=== PATIENT | female | born 1990 | race Caucasian/White ===

== ENCOUNTER 2017-06-04 08:00 | Outpatient (CLI) | payer MEDICAID ==
[2017-06-04 14:15] LABS: ALBUMIN 4.5 g/dL (3.2-5.5); ALBUMIN/GLOBULIN RATIO 1.4 (1.0-2.2); ALKALINE PHOSPHATASE 58 IU/L (42-121); ALT ALANINE AMINOTRANSFERASE 86 IU/L (10-60); AST ASPARTATE AMINOTRANSFERASE 47 IU/L (10-42); BILIRUBIN,TOTAL 0.8 mg/dL (0.2-1.0); BUN - BLOOD UREA NITROGEN 12 mg/dL (6-20); CALCIUM 9.2 mg/dL (8.5-10.3); CARBON DIOXIDE - CO2 23 mmol/L (21-32); CHLORIDE 105 mmol/L (101-111); CHOL/HDL RATIO 4.7 (<4.4); CHOLESTEROL 185 mg/dL; CREATININE 0.5 mg/dL (0.4-1.0); GFR - MDRD 150 (>89); GLUCOSE 109 mg/dL (70-100); HDL CHOLESTEROL 39 mg/dL; LDL CHOLESTEROL,CALCULATED 113 mg/dL; LDL/HDL RATIO 2.9 (<4.4); SODIUM 136 mmol/L (135-145); TOTAL PROTEIN 7.8 g/dL (6.7-8.2); VLDL CHOLESTEROL 33 mg/dL
== END 2017-06-04 08:01 | disposition home or self-care (01) ==
LOC: LAB.N 08:00
PROVIDERS: ATTEND Family Medicine
DX: E66.9 Obesity, unspecified (principal); I10 Essential (primary) hypertension
CPT/HCPCS: 36415; 80053; 80061

== ENCOUNTER 2018-05-11 12:17 | Outpatient (CLI) | payer MEDICAID ==
[2018-05-11 13:45] LABS: ALBUMIN 4.1 g/dL (3.2-5.5); ALBUMIN/GLOBULIN RATIO 1.2 (1.0-2.2); ALKALINE PHOSPHATASE 54 IU/L (42-121); ALT ALANINE AMINOTRANSFERASE 53 IU/L (10-60); AST ASPARTATE AMINOTRANSFERASE 31 IU/L (10-42); BILIRUBIN,TOTAL 0.6 mg/dL (0.2-1.0); BUN - BLOOD UREA NITROGEN 10 mg/dL (6-20); CARBON DIOXIDE - CO2 24 mmol/L (21-32); CHLORIDE 103 mmol/L (101-111); CHOL/HDL RATIO 4.4 (<4.4); CHOLESTEROL 171 mg/dL; CREATININE 0.5 mg/dL (0.4-1.0); GFR - MDRD 149 (>89); GLUCOSE 102 mg/dL (70-100); HDL CHOLESTEROL 39 mg/dL; LDL CHOLESTEROL,CALCULATED 91 mg/dL; LDL/HDL RATIO 2.3 (<4.4); SODIUM 134 mmol/L (135-145); TOTAL PROTEIN 7.5 g/dL (6.7-8.2); VLDL CHOLESTEROL 41 mg/dL
[2018-05-11 14:00] LABS: HB2 TOTAL 14.1 g/dL; HEMOGLOBIN A1C 0.51 g/dL; HEMOGLOBIN A1C % 5.5 % (4.6-6.2)
== END 2018-05-11 23:59 | disposition home or self-care (01) ==
LOC: LAB.N 12:17
PROVIDERS: ATTEND Family Medicine
DX: R74.0 Nonspecific elevation of levels of transaminase and lactic acid dehydrogenase [LDH] (principal); R73.01 Impaired fasting glucose; I10 Essential (primary) hypertension
CPT/HCPCS: 36415; 80053; 80061; 83036; 83721

== ENCOUNTER 2020-04-21 16:15 | Outpatient (CLI) | payer MEDICAID | END 2020-04-21 16:16 | disposition home or self-care (01) | LOC: COV 16:15 | PROVIDERS: ATTEND Family Medicine | DX: Z20.828 Contact with and (suspected) exposure to other viral communicable diseases (principal) ==

== ENCOUNTER 2020-08-23 08:00 | Outpatient (CLI) | payer MEDICAID ==
--- NOTE | 2020-08-23 17:00 | XRAY Report ---
PROCEDURE: Chest 2 View X-Ray INDICATIONS: COUGH TECHNIQUE: 2 view(s) of the chest. COMPARISON: None. FINDINGS: Surgical changes and devices: None. Lungs and pleura: No pleural effusions or pneumothorax. Lungs are clear. Mediastinum: Mediastinal contours are normal. Heart size is normal. Bones and chest wall: No suspicious bony abnormalities. Soft tissues appear unremarkable. IMPRESSION: Normal for age, source of current symptoms is not seen. Reviewed by: Michael Santana MD on 08/23/2020 4:59 PM PDT Approved by: Michael Santana MD on 08/23/2020 4:59 PM PDT Station ID: [id number]
== END 2020-08-23 23:59 | disposition home or self-care (01) ==
LOC: DI.N 08:00
PROVIDERS: ATTEND Family Medicine
DX: R05 Cough (principal); Z20.822 Contact with and (suspected) exposure to COVID-19

== ENCOUNTER 2021-08-23 09:35 | Outpatient (CLI) | payer MEDICAID | END 2021-08-23 09:36 | disposition home or self-care (01) | LOC: LAB.N 09:35 | PROVIDERS: ATTEND Physician Assistant Medical | DX: Z00.00 Encounter for general adult medical examination without abnormal findings (principal); R73.01 Impaired fasting glucose ==

== ENCOUNTER 2021-08-23 09:38 | Outpatient (CLI) | payer MEDICAID ==
[2021-08-23 12:29] LABS: BASOPHILS # (AUTO) 0.1 10^3/uL (0.0-0.1); BASOPHILS % (AUTO) 0.6 %; EOSINOPHILS # (AUTO) 0.1 10^3/uL (0.0-0.7); EOSINOPHILS % (AUTO) 0.8 %; HCT - HEMATOCRIT 42.1 % (37.0-47.0); MEAN CORPUSCULAR HEMOGLOBIN 30.8 pg (27.0-31.0); MEAN CORPUSCULAR HGB CONC 33.3 g/dL (32.0-36.0); MEAN CORPUSCULAR VOLUME 92.7 fL (81.0-99.0); MEAN PLATELET VOLUME 9.5 fL (7.9-10.8); MONOCYTES # (AUTO) 0.6 10^3/uL (0.0-1.0); MONOCYTES % (AUTO) 6.2 %; NEUTROPHILS # (AUTO) 6.1 10^3/uL (1.5-6.6); NEUTROPHILS % (AUTO) 69.2 %; PLT - PLATELET COUNT 332 10^3/uL (130-450); RED BLOOD COUNT 4.54 10^6/uL (4.20-5.40); RED CELL DISTRIBUTION WIDTH 11.9 % (12.0-15.0); WHITE BLOOD COUNT 8.9 x10^3/uL (4.8-10.8)
[2021-08-23 12:58] LABS: ALBUMIN 4.5 g/dL (3.2-5.5); ALBUMIN/GLOBULIN RATIO 1.2 (1.0-2.2); ALKALINE PHOSPHATASE 53 IU/L (42-121); ALT ALANINE AMINOTRANSFERASE 58 IU/L (10-60); AST ASPARTATE AMINOTRANSFERASE 29 IU/L (10-42); BILIRUBIN,TOTAL 0.5 mg/dL (0.2-1.0); BUN - BLOOD UREA NITROGEN 18 mg/dL (6-20); CALCIUM 9.5 mg/dL (8.5-10.3); CARBON DIOXIDE - CO2 25 mmol/L (21-32); CHLORIDE 101 mmol/L (101-111); CHOL/HDL RATIO 4.6 (<4.4); CHOLESTEROL 193 mg/dL; CREATININE 0.6 mg/dL (0.4-1.0); GFR - MDRD 118 (>89); GLUCOSE 106 mg/dL (70-100); HDL CHOLESTEROL 42 mg/dL; LDL CHOLESTEROL,CALCULATED 128 mg/dL; POTASSIUM 4.9 mmol/L (3.5-5.0); SODIUM 134 mmol/L (135-145); TOTAL PROTEIN 8.2 g/dL (6.7-8.2); TRIGLYCERIDES 115 mg/dL; VLDL CHOLESTEROL 23 mg/dL
[2021-08-23 13:02] LABS: THYROID STIMULATING HORMONE 0.85 uIU/mL (0.34-5.60)
== END 2021-08-23 09:39 | disposition home or self-care (01) ==
LOC: LAB.N 09:38
PROVIDERS: ATTEND Physician Assistant Medical
DX: Z00.00 Encounter for general adult medical examination without abnormal findings (principal); R73.01 Impaired fasting glucose
CPT/HCPCS: 36415; 80053; 80061; 83721; 84443; 85025

== ENCOUNTER 2022-03-19 08:00 | Outpatient (CLI) | payer MEDICAID ==
[2022-03-19 21:48] LABS: CHLAMYDIA TRACHOMATIS DNA NEGATIVE (NEGATIVE); NEISSERIA GONORRHOEAE DNA NEGATIVE (NEGATIVE)
[2022-03-19 21:59] LABS: TRICHOMONAS VAGINALIS DNA POSITIVE (NEGATIVE)
== END 2022-03-19 23:59 | disposition home or self-care (01) ==
LOC: LAB.N 08:00
PROVIDERS: ATTEND Physician Assistant Medical
DX: N76.0 Acute vaginitis (principal)
CPT/HCPCS: 87491; 87591; 87661

== ENCOUNTER 2022-07-23 08:27 | Emergency (ER) | payer MEDICAID ==
[2022-07-23] MEDS ORDERED: DEXAMETHASONE 10 MG/ML VIAL PO STA (09:14)
[2022-07-23] MEDS ORDERED: CHERRY SYRUP 10 ML UDC PO ONE (09:14)
--- NOTE | 2022-07-23 09:30 | ED Physician Documentation ---
PD HPI URI - Stated complaint Stated Complaint: COUGH - Chief complaint Chief Complaint: Resp - History obtained from History obtained from: Patient - History of Present Illness Timing - onset: How many weeks ago (3) Timing duration: Weeks (3) Timing details: Gradual onset, Still present, Waxing and waning Associated symptoms: Nasal congestion, Rhinorrhea, Dry cough. No: Fever Contributing factors: Sick contact (both son and daughter are sick with similar .) Improves by: Rest, Medication Similar symptoms before: Has not had sx before Recently seen: Not recently seen - Additional information Additional information: Previously well 32-year-old Flaquita Young has developed a cough and congestion with her 2 children. Her children have been sick for a month and 3 weeks. She has been sick for the past 3 weeks with cough and congestion. She brings up scant phlegm. Review of Systems Constitutional: denies: Fever Eyes: denies: Decreased vision Ears: denies: Ear pain Nose: reports: Rhinorrhea / runny nose, Congestion Throat: denies: Sore throat Cardiac: denies: Chest pain / pressure, Palpitations Respiratory: reports: Cough. denies: Dyspnea GI: denies: Abdominal Pain, Nausea, Vomiting, Diarrhea : denies: Dysuria, Frequency Skin: denies: Rash Musculoskeletal: denies: Neck pain, Back pain, Extremity pain Neurologic: denies: Generalized weakness, Focal weakness, Numbness PD PAST MEDICAL HISTORY - Past Medical History Past Medical History: Yes Cardiovascular: Hypertension - Past Surgical History Past Surgical History: No - Present Medications Home Medications: Ambulatory Orders Medication Instructions Recorded Confirmed Azithromycin [Zithromax] 250 mg PO DAILY #6 tablet 07/23/22 Lisinopril [Zestril] 20 mg PO DAILY 07/23/22 07/23/22 - Allergies Allergies/Adverse Reactions: Allergies Allergy/AdvReac Type Severity Reaction Status Date / Time No Known Drug Allergies Allergy Verified 07/23/22 08:42 - Social History Does the pt smoke?: No Smoking Status: Never smoker Does the pt drink ETOH?: No Does the pt have substance abuse?: No - Immunizations Immunizations are current?: Yes PD ED PE NORMAL - Vitals Vital signs reviewed: Yes (Hypertensive) - General General: Alert and oriented X 3, No acute distress, Well developed/nourished - HEENT HEENT: Atraumatic, PERRL, EOMI, Ears normal, Moist mucous membranes, Pharynx benign, Dentition benign, Other - Neck Neck: Supple, no meningeal sign, No bony TTP - Cardiac Cardiac: RRR, No murmur - Respiratory Respiratory: No respiratory distress, Other (Faint inspiratory wheeze fair air movement) - Abdomen Abdomen: Soft, Non tender - Back Back: No CVA TTP, No spinal TTP - Derm Derm: Normal color, Warm and dry, No rash - Extremities Extremities: No deformity, No edema - Neuro Neuro: Alert and oriented X 3, blue crabber 2-12 intact, No motor deficit, No sensory deficit, Normal speech Eye Opening: Spontaneous Motor: Obeys Commands Verbal: Oriented GCS Score: 15 - Psych Psych: Normal mood, Normal affect Results - Vitals Vitals: Vital Signs - 24 hr 07/23/22 07/23/22 08:39 10:32 Temperature 98.5 C H 36.7 C Heart Rate 99 91 Respiratory 16 15 Rate Blood Pressure 198/127 H 180/100 H O2 Saturation 96 98 Oxygen O2 Source Room air PD Medical Decision Making - ED course Complexity details: considered differential, d/w patient ED course: 32-year-old female with a 3-week history of cough and congestion is still producing some phlegm 3 weeks into a bronchitis and trial of antibiotic is indicated. Place patient on a course of azithromycin after administering a dose of dexamethasone. Departure - Departure Disposition: 01 Home, Self Care Clinical Impression: Asthmatic bronchitis Qualifiers: Asthma severity: mild Asthma persistence: intermittent Asthma complication type: with acute exacerbation Qualified Code(s): J45.21 - Mild intermittent asthma with (acute) exacerbation Condition: Stable Instructions: ED Bronchitis Asthmatic Follow-Up: Marilee Doss PA-C [Primary Care Provider] - Prescriptions: Azithromycin [Zithromax] 250 mg PO DAILY #6 tablet Comments: Stacy today looks like you have some mild wheezing and bronchitis. This has been present for more than a month and a short course of antibiotic is indicated. I do not expect you will need to use an inhaler. The dose of dexamethasone given today should help quite a bit by this afternoon with the ease of breathing. A prescription for azithromycin has been E scribed to the [facility] in [place]. Discharge Date/Time: 07/23/22 10:34
[2022-07-23 10:34] VITALS: BP 180/100
== END 2022-07-23 10:34 | disposition home or self-care (01) ==
LOC: ED 08:27
DX: J45.21 Mild intermittent asthma with (acute) exacerbation (principal); I10 Essential (primary) hypertension
CPT/HCPCS: 99282; 99283; A9270

== ENCOUNTER 2023-01-24 08:00 | Outpatient (CLI) | payer MEDICAID ==
[2023-01-24 23:45] LABS: CHLAMYDIA TRACHOMATIS DNA NEGATIVE (NEGATIVE); NEISSERIA GONORRHOEAE DNA NEGATIVE (NEGATIVE)
[2023-01-25 16:42] LABS: BACTERIAL VAGINOSIS DNA NEGATIVE (NEGATIVE); CANDIDA GROUP DNA NEGATIVE (NEGATIVE); CANDIDA KRUSEI DNA NEGATIVE (NEGATIVE); TRICHOMONAS VAGINALIS DNA POSITIVE (NEGATIVE)
[2023-01-25 16:43] LABS: CANDIDA GLABRATA DNA NEGATIVE (NEGATIVE)
== END 2023-01-24 23:59 | disposition home or self-care (01) ==
LOC: LAB.N 08:00
PROVIDERS: ATTEND Registered Nurse
DX: N76.0 Acute vaginitis (principal)
CPT/HCPCS: 81514; 87491; 87591; 87661

== ENCOUNTER 2023-04-01 10:56 | Outpatient (CLI) | payer MEDICAID ==
--- NOTE | 2023-04-01 10:46 | CARDIAC PROCEDURE NOTE ---
Stress Test Report Service Date: 04/01/23 Service Time: 11:00 Ordering Provider: Marilee Doss PA-C Indication for Test: Assess atypical chest discomfort. Significant Medical History: Stacy is referred for a treadmill stress echocardiogram today, to evaluate intermittent brief episodes of left-sided chest pain, present over the past year and possibly increasing in frequency recently. The episodes occur either with exercise or at rest, without a predictable pattern. Episode duration is typically about 30 seconds, longest 1 minute, and rubbing on her chest over the area usually does decrease the discomfort partially. She reports no associated radiation of the pain, shortness of breath, diaphoresis, nausea or vomiting. 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 She does not feel that she is experiencing a decrease in her stamina. Cardiac Risk Factors: Positive for hypertension (treated with medication for the past 9-10 years) and hyperlipidemia (TC 230, LDL-C 147, HDL-C 43, TG 198, not treated); no history of diabetes or known family history of atherosclerotic disease. She was a smoker but quit over 7 years ago so attributable risk here is likely now very low. Type of Stress Test: ETT with Echocardiography Procedure: -Exercise Treadmill Test- After signing informed consent, the patient underwent echo imaging at rest and then performed treadmill exercise using a Rajinder protocol. The patient exercised for 8 minutes 56 seconds and achieved a peak heart rate of 176 (89 percent predicted maximum heart rate for age), and an estimated workload of 10.2 METS. The test was terminated due to fatigue/shortness of breath. Resting heart rate: 89 Peak heart rate: 176 Normal response to exercise. Resting BP: 138/91 Peak BP: 183/86 Hypertensive at rest with biphasic BP response to exercise; increase to 160/72 in stage 1, decrease to 142/79 in stage 2 (?measurement error) then increase to 183/86 at peak exercise. Rhythm during exercise: Sinus rhythm throughout with no ectopy observed. Symptoms: After conclusion of exercise she reported having had very mild chest tightness in stages 2 and 3, with rapid resolution in early Recovery. EKG at rest showed normal sinus rhythm, normal in all aspects. EKG at peak stress showed no ischemia by EKG criteria; computer analysis suggests inferior ST depression, but this is likely artifactual due to highly varying baseline. In Recovery heart rate rapidly/normally decreased toward baseline level, with slower decline in BP (148/77 at 5:00). Echo imaging, performed at rest and with stress, will be reported separately. Charli Olsen MD, was present throughout this treadmill stress study and supervised it in its entirety. Summary: 1) Exercise tolerance mildly decreased for age and sex as evidenced by JOSE J of 9%. 2) Normal resting EKG. 3) Adequate level of exercise was achieved on this treadmill stress test. 4) Mildly hypertensive at rest (did not take QAM lisinopril prior to coming in) with possibly biphasic, but likely normal (see narrative above) BP response to exercise. 5) No ischemic changes by EKG criteria were seen at peak stress. 6) Echo image interpretation reveals normal left ventricular size, wall thicknes s and systolic function, with appropriate hyperdynamic augmentation of all segments with exercise, indicating no evidence of prior infarct or inducible ischemia. No significant valvular abnormality or elevation of estimated pulmonary artery systolic pressure seen on screening study. See separate report for more details. Conclusions and Recommendations: 1) Reassuring treadmill stress echocardiogram study, with very mild chest tightness late in exercise but no EKG or echocardiographic evidence of associated ischemia. 2) Reassurance provided, in hopes that her awareness of discomfort will gradually subside with time.
== END 2023-04-01 10:57 | disposition home or self-care (01) ==
LOC: DI 10:56
PROVIDERS: ATTEND Physician Assistant Medical
DX: R07.89 Other chest pain (principal); I10 Essential (primary) hypertension; E78.5 Hyperlipidemia, unspecified; Z87.891 Personal history of nicotine dependence
CPT/HCPCS: 93350

== ENCOUNTER 2023-08-05 15:40 | Outpatient (CLI) | payer MEDICAID | END 2023-08-05 23:59 | disposition critical access hospital (66) | LOC: EMS 15:40 | DX: R06.9 Unspecified abnormalities of breathing (principal); R41.0 Disorientation, unspecified; R47.81 Slurred speech; R23.1 Pallor; F10.90 Alcohol use, unspecified, uncomplicated | CPT/HCPCS: A0425; A0429; A0999 ==

== ENCOUNTER 2023-08-05 16:03 | Emergency (ER) | payer MEDICAID ==
--- NOTE | 2023-08-05 16:23 | ED Physician Documentation ---
PD HPI ALTERED MENTAL STATUS - Stated complaint Stated Complaint: OD/ETOH - Chief complaint Chief Complaint: Neuro - History obtained from History obtained from: Patient, EMS - History of Present Illness Timing - onset: Today Timing - details: Abrupt onset, Still present, Still present in ED Quality / character: Unresponsive (friends concerned about her not apparently breathing, so called 911. EMS found pt hypoventilating and did okay with oxygen by NC. No apparent injuries.) Contributing factors: No: Anticoagulated, Diabetic Basline status: Alert and oriented X 3, Ambulatory Review of Systems Unable to obtain: AMS PD PAST MEDICAL HISTORY - Past Medical History Cardiovascular: Hypertension - Past Surgical History Past Surgical History: No - Present Medications Home Medications: Ambulatory Orders Medication Instructions Recorded Confirmed Lisinopril [Zestril] 20 mg PO DAILY 07/23/22 08/05/23 - Allergies Allergies/Adverse Reactions: Allergies Allergy/AdvReac Type Severity Reaction Status Date / Time No Known Drug Allergies Allergy Verified 08/05/23 16:13 - Social History Does the pt smoke?: No Smoking Status: Never smoker Does the pt drink ETOH?: No Does the pt have substance abuse?: No - Immunizations Immunizations are current?: Yes PD ED PE NORMAL - Vitals Vital signs reviewed: Yes - General General: Well developed/nourished (elevated BMI 39. sleepy but rousable to muttering answers with verbal and light touch stimulation. ) - HEENT HEENT: Atraumatic, Moist mucous membranes - Neck Neck: Supple, no meningeal sign, No adenopathy - Cardiac Cardiac: No murmur. No: RRR (mild tachycardia. Normal blood pressure. ) - Respiratory Respiratory: Clear bilaterally - Abdomen Abdomen: Normal bowel sounds, Soft, Non tender, Non distended - Derm Derm: Normal color, Warm and dry - Extremities Extremities: No tenderness to palpate, Normal ROM s pain - Neuro Eye Opening: To Voice Motor: Obeys Commands Verbal: Confused GCS Score: 13 Results - Vitals Vitals: Oxygen O2 Source Room air - Labs Labs: Laboratory Tests 08/05/23 08/05/23 08/05/23 16:37 16:37 18:10 WBC 10.6 RBC 4.41 Hgb 13.6 Hct 40.9 MCV 92.7 MCH 30.8 MCHC 33.3 RDW 12.7 Plt Count 375 MPV 8.5 Neut # (Auto) 6.8 H Lymph # (Auto) 3.2 [place] # (Auto) 0.4 Eos # (Auto) 0.1 Baso # (Auto) 0.0 Absolute Nucleated RBC 0.00 Nucleated RBC % 0.0 Sodium 138 Potassium 3.3 L Chloride 104 Carbon Dioxide 18 L Anion Gap 16.0 H BUN 12 Creatinine 0.7 Estimated GFR (MDRD) 98 Glucose 168 H Calcium 8.7 Total Bilirubin 0.4 AST 129 H ALT 156 H Alkaline Phosphatase 52 Total Protein 7.7 Albumin 4.5 Globulin 3.2 Albumin/Globulin Ratio 1.4 Lipase 14 Urine HCG, Qual NEGATIVE Salicylates < 1.5 Urine Opiates Screen NEGATIVE Ur Buprenorphine Scrn NEGATIVE Ur Oxycodone Screen NEGATIVE Urine Methadone Screen NEGATIVE Acetaminophen 0.1 Ur Barbiturates Screen NEGATIVE Ur Tricyclics Screen NEGATIVE Ur Phencyclidine Scrn NEGATIVE Ur Amphetamine Screen NEGATIVE U Methamphetamines Scrn NEGATIVE U Benzodiazepines Scrn NEGATIVE Urine Cocaine Screen POSITIVE H U Cannabinoids Screen NEGATIVE Ur Drug Screen Comment CUTOFF CONC BELOW: Ethyl Alcohol 195.5 PD Medical Decision Making - ED course Complexity details: reviewed results, re-evaluated patient (pt was slowly having more alertness and conveersational ability. She denies self harm ideation. She states does not drink alcohol regulalry. COnfirms use of alcohol and cocaine. ), considered differential (seems intoxicated with altered LOC. No signs nor reports of injury. She slowly improved LOC and ability to interact with time. Not quite ambulatory on own safely at time of shift change. ), d/w patient Departure - Departure Disposition: 01 Home, Self Care Clinical Impression: Alcohol intoxication AMS (altered mental status) Qualifiers: Altered mental status type: unspecified Qualified Code(s): R41.82 - Altered mental status, unspecified Condition: Stable Record reviewed to determine appropriate education?: Yes Instructions: ED Alcohol Intoxication Comments: You were unconscious/poorly responsive. At this point presume it was from the alcohol intake. Your other basic blood tests are normal with electrolytes blood sugar and blood count. Your urine tox screen test was as we discussed. Moderation and intake. Stay well-hydrated. Home and rest tonight. Forms: PCP List Discharge Date/Time: 08/05/23 21:00
[2023-08-05] MEDS: ONDANSETRON 4 MG/2 ML VIAL IVP STA (16:45)
[2023-08-05] MEDS: SODIUM CHLORIDE 0.9% 1,000 ML IV STA (16:46)
[2023-08-05 16:49] LABS: BASOPHILS % (AUTO) 0.4 %; EOSINOPHILS # (AUTO) 0.1 10^3/uL (0.0-0.7); EOSINOPHILS % (AUTO) 0.6 %; HCT - HEMATOCRIT 40.9 % (37.0-47.0); HGB - HEMOGLOBIN 13.6 g/dL (12.0-16.0); LYMPHOCYTES # (AUTO) 3.2 10^3/uL (1.5-3.5); LYMPHOCYTES % (AUTO) 30.1 %; MEAN CORPUSCULAR HEMOGLOBIN 30.8 pg (27.0-31.0); MEAN CORPUSCULAR HGB CONC 33.3 g/dL (32.0-36.0); MEAN CORPUSCULAR VOLUME 92.7 fL (81.0-99.0); MEAN PLATELET VOLUME 8.5 fL (7.9-10.8); MONOCYTES # (AUTO) 0.4 10^3/uL (0.0-1.0); MONOCYTES % (AUTO) 4.2 %; NEUTROPHILS # (AUTO) 6.8 10^3/uL (1.5-6.6); NEUTROPHILS % (AUTO) 64.2 %; PLT - PLATELET COUNT 375 10^3/uL (130-450); RED BLOOD COUNT 4.41 10^6/uL (4.20-5.40); RED CELL DISTRIBUTION WIDTH 12.7 % (12.0-15.0); WHITE BLOOD COUNT 10.6 x10^3/uL (4.8-10.8)
[2023-08-05 16:55] LABS: ACETAMINOPHEN 0.1 ug/mL; ETOH - ETHANOL 195.5 mg/dL; LIPASE 14 U/L (11-82)
[2023-08-05 17:02] LABS: ALBUMIN 4.5 g/dL (3.2-5.5); ALBUMIN/GLOBULIN RATIO 1.4 (1.0-2.2); ALKALINE PHOSPHATASE 52 IU/L (42-121); ALT ALANINE AMINOTRANSFERASE 156 IU/L (10-60); AST ASPARTATE AMINOTRANSFERASE 129 IU/L (10-42); BILIRUBIN,TOTAL 0.4 mg/dL (0.2-1.0); BUN - BLOOD UREA NITROGEN 12 mg/dL (6-20); CALCIUM 8.7 mg/dL (8.5-10.3); CARBON DIOXIDE - CO2 18 mmol/L (21-32); CHLORIDE 104 mmol/L (101-111); CREATININE 0.7 mg/dL (0.6-1.3); GFR - MDRD 98 (>89); GLUCOSE 168 mg/dL (74-104); POTASSIUM 3.3 mmol/L (3.5-4.5); SODIUM 138 mmol/L (135-145); TOTAL PROTEIN 7.7 g/dL (6.4-8.9)
[2023-08-05 17:26] LABS: SALICYLATE < 1.5 mg/dL
[2023-08-05 18:24] VITALS: O2SAT 95
[2023-08-05 18:28] LABS: HCG UR QUAL NEGATIVE
[2023-08-05 18:32] LABS: AMPHETAMINE SCREEN,URINE NEGATIVE (NEGATIVE); BARBITURATE SCREEN,UR NEGATIVE (NEGATIVE); BENZODIAZEPINES SCREEN, URINE NEGATIVE (NEGATIVE); COCAINE SCREEN URINE POSITIVE (NEGATIVE); METHADONE SCREEN, URINE NEGATIVE (NEGATIVE); METHAMPHETAMINES SCREEN, URINE NEGATIVE (NEGATIVE); OPIATE SCREEN, URINE NEGATIVE (NEGATIVE); OXYCODONE SCREEN, URINE NEGATIVE (NEGATIVE); THC CANNABINOID SCREEN, URINE NEGATIVE (NEGATIVE); TRICYCLIC ANTIDEPRESSANT,URINE NEGATIVE (NEGATIVE)
[2023-08-05 18:33] LABS: BUPRENORPHINE SCREEN, URINE NEGATIVE (NEGATIVE)
--- NOTE | 2023-08-05 20:04 | ED Physician Documentation ---
ED Addendum - Addendum Addendum: 08/05/23 20:03 The patient was reevaluated by myself at 1999 after being signed out at change of shift by Dr. Kim after presenting to the emergency department with alcohol intoxication as well as possibly effects of cocaine. The patient had been observed in the emergency department for several hours and on reevaluation was alert, coherent, and ready to go home. Her vital signs were normal and the patient overall was well-appearing. She had a sober ride home. We have discuss ed symptomatic management at home and the dangers of using alcohol and cocaine at the same time. We discussed the usual indications for return. Final impression: 1. Alcohol intoxication 2. Altered mental status Disposition: Home in stable and improved condition.
[2023-08-05 21:02] VITALS: BP 127/88
== END 2023-08-05 21:00 | disposition home or self-care (01) ==
LOC: EDUNIT# → ED 16:03
DX: F10.129 Alcohol abuse with intoxication, unspecified (principal); Y90.6 Blood alcohol level of 120-199 mg/100 ml; R41.82 Altered mental status, unspecified; I10 Essential (primary) hypertension; Z79.899 Other long term (current) drug therapy
CPT/HCPCS: 36415; 80053; 80143; 80179; 80306; 81025; 82077; 83690; 85025; 99283; 99284

== ENCOUNTER 2023-08-18 09:00 | Outpatient (CLI) | payer MEDICAID ==
[2023-08-18 12:02] LABS: BASOPHILS % (AUTO) 0.5 %; EOSINOPHILS # (AUTO) 0.1 10^3/uL (0.0-0.7); EOSINOPHILS % (AUTO) 0.9 %; HCT - HEMATOCRIT 40.2 % (37.0-47.0); HGB - HEMOGLOBIN 13.5 g/dL (12.0-16.0); LYMPHOCYTES # (AUTO) 1.9 10^3/uL (1.5-3.5); LYMPHOCYTES % (AUTO) 23.6 %; MEAN CORPUSCULAR HEMOGLOBIN 30.8 pg (27.0-31.0); MEAN CORPUSCULAR HGB CONC 33.6 g/dL (32.0-36.0); MEAN CORPUSCULAR VOLUME 91.6 fL (81.0-99.0); MEAN PLATELET VOLUME 9.5 fL (7.9-10.8); MONOCYTES # (AUTO) 0.5 10^3/uL (0.0-1.0); MONOCYTES % (AUTO) 6.3 %; NEUTROPHILS # (AUTO) 5.6 10^3/uL (1.5-6.6); NEUTROPHILS % (AUTO) 68.6 %; PLT - PLATELET COUNT 289 10^3/uL (130-450); RED BLOOD COUNT 4.39 10^6/uL (4.20-5.40); RED CELL DISTRIBUTION WIDTH 12.2 % (12.0-15.0); WHITE BLOOD COUNT 8.1 x10^3/uL (4.8-10.8)
[2023-08-18 12:26] LABS: ALBUMIN 4.3 g/dL (3.2-5.5); ALBUMIN/GLOBULIN RATIO 1.5 (1.0-2.2); ALKALINE PHOSPHATASE 54 IU/L (42-121); ALT ALANINE AMINOTRANSFERASE 62 IU/L (10-60); AST ASPARTATE AMINOTRANSFERASE 29 IU/L (10-42); BILIRUBIN,TOTAL 0.3 mg/dL (0.2-1.0); BUN - BLOOD UREA NITROGEN 11 mg/dL (6-20); CALCIUM 9.3 mg/dL (8.5-10.3); CARBON DIOXIDE - CO2 25 mmol/L (21-32); CHLORIDE 108 mmol/L (101-111); CHOL/HDL RATIO 4.6 (<4.4); CHOLESTEROL 184 mg/dL; CREATININE 0.5 mg/dL (0.6-1.3); GFR - MDRD 144 (>89); GLUCOSE 102 mg/dL (74-104); HDL CHOLESTEROL 40 mg/dL; LDL CHOLESTEROL,CALCULATED 92 mg/dL; LDL/HDL RATIO 2.3 (<4.4); POTASSIUM 4.2 mmol/L (3.5-4.5); SODIUM 136 mmol/L (135-145); TOTAL PROTEIN 7.1 g/dL (6.4-8.9); TRIGLYCERIDES 261 mg/dL (48-352); VLDL CHOLESTEROL 52 mg/dL
[2023-08-18 12:32] LABS: ESTIMATED AVERAGE GLUCOSE 117 mg/dL (70-100); HEMOGLOBIN A1c% 5.7 % (4.27-6.07)
[2023-08-18 12:36] LABS: THYROID STIMULATING HORMONE 0.68 uIU/mL (0.34-5.60)
== END 2023-08-18 09:01 | disposition home or self-care (01) ==
LOC: LAB.N 09:00
PROVIDERS: ATTEND Nurse Practitioner Family
DX: I10 Essential (primary) hypertension (principal); R74.8 Abnormal levels of other serum enzymes; E66.9 Obesity, unspecified
CPT/HCPCS: 36415; 80053; 80061; 83036; 83721; 84443; 85025

== ENCOUNTER 2023-09-21 09:05 | Emergency (ER) | payer MEDICAID ==
[2023-09-21 09:22] VITALS: BP 162/106; O2SAT 97
--- NOTE | 2023-09-21 09:38 | ED Physician Documentation ---
History of Present Illness - Stated complaint Stated Complaint: RT HAND TINGLING - Chief complaint Chief Complaint: Ext Problem - History obtained from History obtained from: Patient - Additonal information Additional information: The patient comes to the emergency department chief complaint of pain and numbness in her bilateral hands, worse on the right, that has been keeping her up at night for the last 2 weeks. 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 She states that the numb, searing pain starts at the base of her palm, just distal to her wrist and extends through the palm distally 10 with a numb, burning sensation in her middle and ring fingers. She states that she has not noticed any swelling. 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 She has tried taking ibuprofen at home and has not helped. No distinct injury. No history of carpal tunnel previously. No pain or numbness more proximally in her upper extremities. It is worse on the right. She is right-hand dominant. No other complaints at this time. PD PAST MEDICAL HISTORY - Past Medical History Past Medical History: Yes Cardiovascular: Hypertension - Past Surgical History Past Surgical History: No - Present Medications Home Medications: Ambulatory Orders Medication Instructions Recorded Confirmed FLUoxetine [PROzac] 10 mg PO DAILY 09/21/23 09/21/23 HYDROcod/ACETAM 5/325 [Hepler 5/325] 1 - 2 tablet PO Q6H PRN #10 tablet 09/21/23 Lisinopril [Zestril] 40 mg PO DAILY 09/21/23 09/21/23 predniSONE [Deltasone] 10 mg PO [id number] #42 tab 09/21/23 - Allergies Allergies/Adverse Reactions: Allergies Allergy/AdvReac Type Severity Reaction Status Date / Time No Known Drug Allergies Allergy Verified 09/21/23 09:18 - Social History Does the pt smoke?: No Smoking Status: Never smoker Does the pt drink ETOH?: No Does the pt have substance abuse?: No - Immunizations Immunizations are current?: Yes - POLST Patient has POLST: No PD ED PE NORMAL - Vitals Vital signs reviewed: Yes - General General: Alert and oriented X 3, No acute distress, Well developed/nourished - HEENT HEENT: Atraumatic, EOMI, Moist mucous membranes - Neck Neck: Supple, no meningeal sign - Cardiac Cardiac: Strong equal pulses - Respiratory Respiratory: No respiratory distress - Derm Derm: Normal color, Warm and dry, No rash - Extremities Extremities: No deformity, No tenderness to palpate, Normal ROM s pain, No edema - Neuro Neuro: No motor deficit, Other (Grossly intact.) - Psych Psych: Normal mood, Normal affect Results - Vitals Vitals: Vital Signs - 24 hr 09/21/23 09:15 Temperature 35.8 C L Heart Rate 77 Respiratory 20 Rate Blood Pressure 162/106 H O2 Saturation 97 Oxygen O2 Source Room air PD Medical Decision Making - ED course Complexity details: considered differential, d/w patient ED course: I discussed with the patient that her symptoms were most consistent with median nerve compression, and she did state her father had surgery for carpal tunnel as well. I suspect that the chronic flexor tension in the wrist through work has precipitated this constellation of symptoms. We have discussed resting her Wrist by doing light duty at work or a different position that does not involve the constant flexor tension. I have also provided the patient with bilateral Velcro wrist splints for support. I have started the patient on a steroid course today. We have discussed that if this does not seem to help, she will need to speak with her workplace about having a different position that does not involve repeated stress on her wrists or she will need to consider getting a different job. Finally, if none of these things result in resolution of symptoms, she may need to see an orthopedist or hand specialist to discuss possible surgical options. Patient expresses understanding. I have sent a prescription for a steroid taper to the pharmacy of her choice. We have discussed the usual indications for return. Departure - Departure Disposition: 01 Home, Self Care Clinical Impression: Median nerve compression Condition: Stable Instructions: ED Carpal Tunnel Prescriptions: predniSONE [Deltasone] 10 mg PO [id number] #42 tab HYDROcod/ACETAM 5/325 [Hepler 5/325] 1 - 2 tablet PO Q6H PRN #10 tablet PRN Reason: Pain Comments: As we discussed, your symptoms are most consistent with a compression of the median nerve, one of the nerves that gives sensation to your hand. This is usually caused by some sort of repetitive motion or stress involving either the wrist or the elbow, which results in some inflammation that either alters the nerve signaling process or causes direct pressure on the nerve. The main initial treatment for this is to abstain from the repetitive movement or stress that is causing the inflammation and allow it time to settle down and see if the symptoms go away. This can involve support with wrist braces in addition to trying to avoid the offending movements. If that does not seem to help, along with the course of steroids that we have prescribed, then you will need to determine whether you can do a different set of duties at your job or whether you need to do a different job altogether. If your symptoms still do not resolve after some weeks then the next step would be to talk to an orthopedist/hand specialist to see if there are surgical options that would help. For now, we have started you on a course of steroids and prescription for this and a short course of as needed pain medication has been electronically transmitted to the [facility] pharmacy in [place]. Please pick this up and plan to take your next dose of steroids tomorrow. Please schedule the next available appointment with your primary doctor to follow-up on this issue. You may wear the wrist braces as needed for support.
[2023-09-21] MEDS: predniSONE 20 MG TABLET PO STA (10:00)
== END 2023-09-21 10:06 | disposition home or self-care (01) ==
LOC: ED 09:05
DX: G56.03 Carpal tunnel syndrome, bilateral upper limbs (principal)
CPT/HCPCS: 99283; J7512